=== PATIENT | male | born 1955 | race Caucasian/White ===

== ENCOUNTER → 2016-08-16 | Outpatient (CLI) | payer OTHER ==
[~2016-08-16] MED LIST: ALBUTEROL17 GM INH; ASPIRIN ENTERI325 M1 PO; BENAZEPRIL HCL10 M2 PO; COREG3.125 M1; IBUPROFEN800 MG PO; MUCUS RELIEF DM1 TA1 PO; MULTI VITAMIN1 EACH PO; NORCO 10-325 TA1 TAB PO; POTASSIUM99 M2 PO; PRIMATENE; QVAR7.3 G1 INH; VIAGRA PO; VITAMIN C1000 M2 PO; VITAMIN D250000 UNIT PO; VITAMIN D50000 UNIT PO; ZESTORETIC 10/11 TAB PO
--- NOTE | ~2016-08-16 | EKG ---
PATIENT: GWENDOLYN PINTO UNIT #: [id number] Ventricular Rate: 96 BPM Atrial Rate: 96 BPM P-R Interval: 194 ms QRS Duration: 92 ms Q-T Interval: 354 ms QTC Calculation(Bezet): 447 ms P Brewster: 70 degrees Calculated R Brewster: 5 degrees Calculated T Brewster: 15 degrees Diagnosis Line: Normal sinus rhythm Diagnosis Line: Left ventricular hypertrophy with repolarization Diagnosis Line: abnormality Diagnosis Line: Abnormal ECG Diagnosis Line: No previous ECGs available Diagnosis Line: Confirmed by JAMIE VIEIRA MD ([id number]) on 08/17/2016 Diagnosis Line: 5:39:29 PM INTERPRETING MD: DARIEL HUANG
--- NOTE | ~2016-08-16 | CR63 ---
[facility] of [facility] RADIOLOGY TEXT RESULTS PATIENT: GWENDOLYN PINTO LOCATION: [facility] : 57 UNIT #: [id number] AGE: [address]: Weston Callahan MD SEX: M ORDER DR: [id number] [facility] [address] [place], [place] [address] [id number] O MR#: [id number] Acc #: [id number] NAME: GWENDOLYN PINTO : 1955 SEX: M STUDY DATE/TIME: 08/16/2016 12:07 UNIT: [facility] ROOM: STUDY DESCRIPTION: CR Chest 2 View Attending Physician: Weston Callahan M.D. Referring Physician: Weston Callahan M.D. Ordering Physician: Weston Callahan M.D. Primary Care Physician: Brandie Barone M.D. MEDICAL IMAGING REPORT This report is preliminary unless electronic signature is present EXAM PA and lateral chest INDICATION Preop right hip surgery. EXAM A PA and lateral view of the chest were obtained and compared to 05/31/2015. The heart size and vascularity are normal and the lungs are clear. The bones are unremarkable. IMPRESSION No active disease. Dictated by... Brody Palmer M.D. THIS IS AN ELECTRONICALLY VERIFIED REPORT Brody Palmer M.D. at 08/16/2016 3:25 PM Jamin TD: 08/16/2016 14:51 JOB #: [id number] MEDICAL IMAGING REPORT COPY
--- NOTE | ~2016-08-16 | CO ---
Unit #: [id number] #: [id number] Patient: GWENDOLYN PINTO [id number] [address] [place], [place] [address] [id number] O MR#: [id number] NAME: GWENDOLYN PINTO ROOM: Age: 61 Sex: M Admission Date: 08/16/2016 : 1955 Attending Physician: Weston Callahan M.D. Primary Care Physician: Brandie Barone M.D. CONSULTATION REPORT REASON FOR CONSULTATION Medical preop clearance. HISTORY OF PRESENT ILLNESS The patient is a 61-year-old male with a history of osteoarthritis of the hip, COPD, hypertension, awaiting the right total hip arthroplasty on 09/04/[address] Callahan and is here for the medical preop clearance. The patient has preoperative high blood pressure and is noncompliant with the medications and missed the medications for the last few days of Coreg and blood pressure at the time of evaluation was 141/91 and the heart rate running in the 90s. The patient denies any shortness of breath, chest pain, palpitations, or dizziness. The patient is scheduled to follow with cardiology on 08/21/2016 for the cardiology clearance. The patient continues to smoke cigarettes half a pack per day and just try to cut it out and the patient was started on the inhalers by the primary care physician. The patient had rhinoplasty and septoplasty in the past and has no surgical complications with anesthesia. The patient denies any history of chest pain at rest and the patient had a cardiac cath back in 2006 that showed nonischemic congestive cardiomyopathy, etiology undetermined, and recommended medical management. The patient denies any acute infection at the time of evaluation. The patient also has tooth decays and is awaiting the removal of the remaining teeth on 08/24/2016. PAST MEDICAL HISTORY History of osteoarthritis of the right hip, arthralgia, cardiomyopathy, tobacco abuse, vitamin D deficiency, high blood pressure. PAST SURGICAL HISTORY Rhinoplasty and septoplasty. FAMILY HISTORY Positive for diabetes. SOCIAL HISTORY Smokes half a pack per day and uses marijuana. Denies any alcohol abuse. MEDICATIONS He takes the benazepril, vitamin, Coreg, ibuprofen, Viagra, multivitamin, potassium, vitamin C, , QVAR, and Ventolin. REVIEW OF SYSTEMS 14-point review of systems performed, and only pertinent positive findings are described, but remaining are negative. Unit #: [id number] #: [id number] Patient: GWENDOLYN PINTO PHYSICAL EXAMINATION GENERAL: The patient is sitting on a chair, not in acute distress. VITAL SIGNS: Temperature 97, blood pressure 141/91, heart rate 91, respirations 20, saturating 97% on room air. HEENT: Head, atraumatic, normocephalic. Pupils are equal, round, and reactive to light and accommodation. Positive for tooth decays in the mouth. NECK: Supple. LUNGS: Decreased air entry at the bases. Positive for wheezing. HEART: Regular rate and rhythm. ABDOMEN: Soft. Positive bowel sounds. EXTREMITIES: Right hip pain and no cyanosis. No clubbing. NEUROLOGIC: Alert, awake, and oriented. No gross focal motor deficits. DIAGNOSTIC STUDIES LABORATORY RESULTS: UA shows negative nitrites, negative leukocyte esterase, negative glucose. WBC 8.7, hemoglobin 13.7, hematocrit 40.3, platelets 304. Sodium 140, potassium 4, chloride 107, glucose 101, BUN 23, creatinine 0.7, AST 28, ALT 79, total bilirubin 0.7, albumin 4. INR is 1. CARDIOVASCULAR STUDIES: EKG shows normal sinus rhythm with rate of 96 beats per minute and LVH and QTc of 447. IMAGING STUDIES: Chest x-ray shows no acute disease. ASSESSMENT 1. Osteoarthritis of the hip. 2. Chronic obstructive pulmonary disease. 3. Uncontrolled blood pressure. 4. Tooth decay. PLAN The patient is awaiting the right total hip surgery on 09/04/2016. Continue with the . Follow with Cardiology and resume the Coreg and benazepril. Continue nebs for COPD and QVAR. Awaiting the tooth extraction on the 08/24/2016 and the patient has risk factors with cardiomyopathy, COPD, uncontrolled blood pressure, and has [id number] for the right total hip surgery and follow with Cardiology for cardiac clearance and then continue with the smoking cessation. Thank you for allowing us to see the patient and we will follow the patient when the patient is being admitted for the surgery. Dictated by... Edwin Fitch M.D. DEL/alan TD: 08/17/2016 00:25 JOB #: [id number] Unit #: [id number] #: [id number] Patient: GWENDOLYN PINTO CONSULTATION REPORT X X CONSULTATION REPORT
[2016-08-16 11:08] LABS: URINE APPEARANCE CLEAR; URINE BILIRUBIN NEG (NEG); URINE BLOOD NEG (NEG); URINE COLOR YELLOW; URINE GLUCOSE NEG (NEG); URINE KETONE NEG (NEG); URINE LEUKOCYTE ESTERASE NEG (NEG); URINE NITRATE NEG (NEG); URINE PROTEIN NEG (NEG); URINE SPECIFIC GRAVITY 1.028 (1.003-1.035); URINE UROBILINOGEN 0.2 MG/DL (NEG)
[2016-08-16 11:11] LABS: HEMATOCRIT 40.3 % (38.0-50.0); HEMOGLOBIN 13.7 gm/dL (13.0-16.0); MEAN CELL VOLUME 93.8 FL (83-96); MEAN CORPUSCULAR HGB CONC 34.1 g/dL (30-36); MEAN PLATELET VOLUME 7.2 FL (6.5-11.5); RED BLOOD COUNT 4.29 X10e (3.90-5.60); RED CELL DISTRIBUTION WIDTH 12.2 % (11.0-15.5); WHITE BLOOD COUNT 8.7 X10e3 (4.0-10.5)
[2016-08-16 11:14] LABS: URINE SOURCE CLEAN CATCH
[2016-08-16 11:19] LABS: PROTHROMBIN TIME (PATIENT) 10.1 SECONDS (9.6-11.5)
[2016-08-16 11:35] LABS: ALKALINE PHOSPHATASE 79 U/L (32-92); ALT (SGPT) 30 U/L (10-40); AST (SGOT) 28 U/L (10-42); BILIRUBIN,TOTAL 0.7 mg/dL (0.2-2.0); BLOOD UREA NITROGEN 23 mg/dL (9-23); BUN/CREATININE RATIO 32.85; CALCIUM SERUM 9.2 mg/dL (8.4-10.2); CARBON DIOXIDE 24 mmol/L (22-31); CHLORIDE 107 mmol/L (100-111); CREATININE SERUM 0.7 mg/dL (0.6-1.4); GLOM FILT RATE Estimated ABOVE60 mL/min (>60); GLUCOSE FASTING 101 mg/dL (70-110); PROTEIN TOTAL SERUM 6.8 g/dL (6.0-8.3); SODIUM 140 mmol/L (135-145)
[2016-08-16 12:14] LABS: CULTURE INDICATED? NO
== END | disposition home or self-care (01) ==
LOC: CAMB 10:24
PROVIDERS: Orthopaedic Surgery
DX: Z01.818 Encounter for other preprocedural examination (principal); M16.11 Unilateral primary osteoarthritis, right hip
CPT/HCPCS: 36415; 71020; 80053; 81003; 85027; 85610; 86850; 86900; 86901; 87070; 93005

== ENCOUNTER 2016-09-04 08:06 | Inpatient (IN) | payer OTHER ==
--- NOTE | ~2016-09-04 | OR ---
Unit #: [id number] #: [id number] Patient: GWENDOLYN PINTO [id number] [address] [place], [place] [address] [id number] I MR#: [id number] NAME: GWENDOLYN PINTO ROOM: 456 Date of Procedure: 09/04/2016 Admission Date: 09/04/2016 Surgeon: Weston Callahan M.D. : 1955 Attending Physician: Weston Callahan M.D. Referring Physician: Weston Callahan M.D. Primary Care Physician: Brandie Barone M.D. OPERATIVE REPORT PREOPERATIVE DIAGNOSIS Severe arthritis of the right hip. POSTOPERATIVE DIAGNOSIS Severe arthritis of the right hip. PROCEDURE PERFORMED Right total hip. ASSISTANTS Cora Saldivar and Cali Bradley. ANESTHESIA General. ESTIMATED BLOOD LOSS About 200 mL. INDICATIONS FOR PROCEDURE This is a 61-year-old with a severely arthritic right hip. He had pain for years. It has gotten progressively worse. The pain limits his walking or standing, and his activities of daily living. His x-rays shows he has severe arthritis with [id number], periarticular osteophytes, and subchondral sclerosis. He is brought to the hospital today for right total hip. DESCRIPTION OF PROCEDURE The patient was brought to the holding room, given 2 g of Kefzol. This will be continued postop, but discontinued within 23 hours the start time of surgery. He was then given a general anesthetic, placed in decubitus position with the right side up. Right hip was prepped and draped in a sterile fashion. Modified Aufranc incision was mapped out and made. The subcutaneous dissected away and the fascia split longitudinally. Short rotators were taken down with the cautery unit. Posterior hip capsule was identified. This was T'd open. The leg was internally rotated and the hip was dislocated posteriorly. The neck osteotomy was performed and then after this was done, the patient then had the head fragment removed and the femur retracted anteriorly. The labrum had calcified, so we reamed up to a size 60 and the 50 cup was inserted in 40 degrees of abduction and 20 degrees of forward flexion with an excellent fit. We then placed a neutral 36 trial liner in position. Osteophytes were removed from the edges of the acetabulum using 0.5-inch straight osteotome. The femur was Unit #: [id number] #: [id number] Patient: GWENDOLYN PINTO then prepared using conical reamers up to a size 6 and then broaches used up to a size 6. Reduction was carried out with a standard offset neck first a 1.5 and then a 5 mm, 36 head trial. 5 mm gave better leg lengths and better stability. The patient then had all the trials removed. The ropivacaine mixture was injected. The real liner was impacted into the cup. The real stem was inserted in 20 degrees of anteversion. We did another trial with the +5, 36 head. This was appropriate, so the +5, 36 mm BIOLOX delta ceramic head was opened and applied to the trunnion bearing and then the hip was reduced. Once again, stability was excellent in all directions. The rest of ropivacaine mixture was injected. Then, the wound was irrigated with a Betadine and bacitracin and then closed using 0 Vicryl in the capsule, a running #1 STRATAFIX suture in the fascia, 0 and 2-0 Vicryl in the subcutaneous, and kvng in the skin. power plant assistant, Cora Saldivar was present throughout the entire case. Dictated by... Castillo Benavidez/alan TD: 09/04/2016 23:08 JOB #: [id number] OPERATIVE REPORT Page 1 of 1 X Weston Callahan MD X PROCEDURE OPERATIVE NOTE
--- NOTE | ~2016-09-04 | CR145 ---
[facility] A Service of [facility] & [facility] RADIOLOGY TEXT RESULTS PATIENT: GWENDOLYN PINTO LOCATION: [facility] 456-01 : 57 UNIT #: [id number] AGE: [address]: Weston Callahan MD SEX: M ORDER DR: [id number] [facility] [address] [place], [place] [address] [id number] I MR#: [id number] Acc #: [id number] NAME: GWENDOLYN PINTO : 1955 SEX: M STUDY DATE/TIME: 09/04/2016 11:10 UNIT: [facility] ROOM: [facility] STUDY DESCRIPTION: CR Hip 1 View Rt Attending Physician: Weston Callahan M.D. Referring Physician: Weston Callahan M.D. Ordering Physician: Weston Callahan M.D. Primary Care Physician: Brandie Barone M.D. MEDICAL IMAGING REPORT This report is preliminary unless electronic signature is present EXAM Right hip, single view. HISTORY 61-year-old male. Postop right total hip arthroplasty. Initial exam. COMPARISON 10/09/2015 FINDINGS Interval right total hip arthroplasty. Hardware intact. Alignment anatomic. IMPRESSION Interval right total hip arthroplasty. Dictated by... Jona Napier M.D. THIS IS AN ELECTRONICALLY VERIFIED REPORT Jona Napier M.D. at 09/04/2016 4:41 PM SHUBHAM/[place] TD: 09/04/2016 13:33 JOB #: [id number] MEDICAL IMAGING REPORT Page 1 of 1 COPY
--- NOTE | ~2016-09-04 | DS ---
Unit #: [id number] #: [id number] Patient: GWENDOLYN PINTO [id number] [address] [address] [id number] I MR#: [id number] NAME: GWENDOLYN PINTO ROOM: 456 Age: 61 Sex: M Admission Date: 09/04/2016 : 1955 Discharge Date: 09/05/2016 Attending Physician: Weston Callahan M.D. Referring Physician: Weston Callahan M.D. Primary Care Physician: Brandie Barone M.D. DISCHARGE SUMMARY ADMITTING DIAGNOSIS Right hip osteoarthritis. DISCHARGE DIAGNOSIS Right hip osteoarthritis. PROCEDURE PERFORMED Right total hip arthroplasty. HOSPITAL COURSE On 09/04/2016, Mr. Pinto underwent a left total hip arthroplasty. He underwent a right total hip arthroplasty. He tolerated the procedure well. He was transported to the 4th floor, where he underwent physical therapy, medical management, and anticoagulation therapy. He is doing well and he is ready to be discharged. DISPOSITION Stable at discharge. Discharged to home with home health. MEDICATIONS ON DISCHARGE Include his routine home medications in addition to Sims 10/325 and aspirin 325 mg p.o. b.i.d. x4 weeks. FOLLOWUP AND INSTRUCTIONS Mr. Pinto is going to be discharged home with home health. The patient is on aspirin for DVT prophylaxis. No labs are warranted at this time. A physical therapy is to be done for ambulation and dislocation precautions. The patient is on a walker for 4 weeks and a cane for an additional 2 weeks. Followup appointment with Dr. Callahan in 6 weeks. Please call our office for that appointment date and time. Dictated by... Mike Mosqueda for Castillo Benavidez/alan TD: 09/06/2016 01:28 JOB #: [id number] Unit #: [id number] #: [id number] Patient: GWENDOLYN PINTO DISCHARGE SUMMARY Page 1 of 1 X Cora Saldivar X DISCHARGE SUMMARY
[~2016-09-04 08:06] MED LIST changes: -ASPIRIN ENTERI325 M1 PO; -NORCO 10-325 TA1 TAB PO; -VITAMIN D50000 UNIT PO
[2016-09-04 08:44] LABS: PROTHROMBIN TIME (PATIENT) 10.6 SECONDS (9.6-11.5)
[2016-09-05 05:10] LABS: HEMOGLOBIN 10.8 gm/dL (13.0-16.0)
[2016-09-05 06:47] LABS: CALCIUM SERUM 8.4 mg/dL (8.4-10.2); CREATININE SERUM 0.7 mg/dL (0.6-1.4); GLOM FILT RATE Estimated 102.6 mL/min (>60); MAGNESIUM 1.9 mg/dL (1.6-3.0); POTASSIUM 3.5 mmol/L (3.5-5.1)
[2016-09-05] MEDS ORDERED: ASPIRIN ENTERI325 M1 PO (10:01)
[2016-09-05] MEDS ORDERED: VITAMIN D50000 UNIT PO (10:03)
[2016-09-05] MEDS ORDERED: NORCO 10-325 TA1 TAB PO (10:04)
== END 2016-09-05 12:13 | disposition home health service (06) | DRG 470 ==
LOC: CSUR 08:06 → CPACUOF 09:00 → C4B 12:00
PROVIDERS: Nurse Practitioner; Orthopaedic Surgery
PROC: 0SR903Z Replacement of Right Hip Joint with Ceramic Synthetic Substitute, Open Approach (ICD-10-PCS; principal; 2016-09-04 09:00)
DX: M16.11 Unilateral primary osteoarthritis, right hip (principal); I42.9 Cardiomyopathy, unspecified; D62 Acute posthemorrhagic anemia; J44.9 Chronic obstructive pulmonary disease, unspecified; I10 Essential (primary) hypertension; K02.9 Dental caries, unspecified; E87.6 Hypokalemia; E55.9 Vitamin D deficiency, unspecified; F17.210 Nicotine dependence, cigarettes, uncomplicated
CPT/HCPCS: 73501; 80048; 83735; 85014; 85018; 85610; 88304; 88311; 94640; 97110; 97116; 97162; 97530; C1776; G8978-GP; G8979-GP; J0131; J0171; J0690; J0735; J1100; J1170; J1885; J2250; J2370; J2405; J2795; J3010

== ENCOUNTER → 2016-10-12 | Outpatient (CLI) | payer OTHER ==
[~2016-10-12] MED LIST changes: +ASPIRIN ENTERI325 M1 PO; +NORCO 10-325 TA1 TAB PO; +VITAMIN D50000 UNIT PO
--- NOTE | ~2016-10-12 | CR145 ---
[facility] A Service of [facility] & [facility] RADIOLOGY TEXT RESULTS PATIENT: GWENDOLYN PINTO LOCATION: [facility] : 57 UNIT #: [id number] AGE: [address]: Weston Callahan MD SEX: M ORDER DR: [id number] [facility] [address] [place], [place] [address] [id number] O MR#: [id number] Acc #: [id number] NAME: GWENDOLYN PINTO : 1955 SEX: M STUDY DATE/TIME: 10/12/2016 9:35 UNIT: [facility] ROOM: STUDY DESCRIPTION: CR Hip 1 View Rt Attending Physician: Weston Calalhan M.D. Referring Physician: Weston Callahan M.D. Ordering Physician: Weston Callahan M.D. Primary Care Physician: Brandie Barone M.D. MEDICAL IMAGING REPORT This report is preliminary unless electronic signature is present EXAM Right hip. INDICATION Right hip replacement. Evaluate prosthesis. FINDINGS AP view of the right hip is compared with 09/04/2016. It is a cross-table lateral view of the right hip and there is a right hip prosthesis present. There is no fracture or dislocation visible on this image. Comparison study was 09/04/2016. Dictated by... Brody Palmer M.D. THIS IS AN ELECTRONICALLY VERIFIED REPORT Brody Palmer M.D. at 10/13/2016 10:10 PM MATTIE/che TD: 10/13/2016 21:31 JOB #: [id number] MEDICAL IMAGING REPORT Page 1 of 1 COPY
== END | disposition home or self-care (01) ==
LOC: CRAD 09:12
DX: Z47.1 Aftercare following joint replacement surgery (principal); Z96.641 Presence of right artificial hip joint
CPT/HCPCS: 73501